=== PATIENT | male | born 1975 | race Caucasian/White ===

== ENCOUNTER 2017-06-28 14:48 | Inpatient (IN) | payer BC ==
[2017-06-28] MEDS ORDERED: Sodium Chloride 0.9% 10 ML Syringe FLUSH PRN (15:00)
[2017-06-28] MEDS ORDERED: Sodium Chloride 0.9% 1,000 ML IV ONE (15:09)
[2017-06-28] MEDS ORDERED: LORazepam 2 MG/ML MDV IVPUSH STA (15:15)
[2017-06-28] MEDS ORDERED: LORazepam 2 MG/ML MDV ONE ×2 (15:18→15:49)
--- NOTE | 2017-06-28 15:24 | CT ---
Head CT Technique: Multiple axial sections through the brain were obtained. Intravenous contrast was not utilized. Comparison: No previous intracranial imaging is available. Findings: Small low-density area is seen within the posterior left basal ganglia most likely due to slightly prominent perivascular space as an incidental note. Ventricles along with basal cisterns and sulci over the convexities are within normal limits. No abnormal parenchymal densities are otherwise seen. No evidence of intracranial hemorrhage. No midline shift or mass effect is seen. Bone window settings were obtained which shows the mastoid sinuses to appear clear. Paranasal sinuses are clear. No acute calvarial abnormality is seen. Impression: 1. Incidental finding. Nothing acute is identified on noncontrast head CT exam. Diagnostic code #2
--- NOTE | 2017-06-28 15:42 | EDM.PDOC ---
ED HPI GENERAL MEDICAL PROBLEM - General Chief Complaint: Neurological Problem Stated Complaint: [facility] Time Seen by Provider: 06/28/17 14:50 Source of Information: Reports: Patient History Limitations: Reports: Intoxication, Other (post ictal) - History of Present Illness INITIAL COMMENTS - FREE TEXT/NARRATIVE: 42-year-old male is brought in by [facility] for evaluation treatment of the seizure. Per EMS there call out at 14:11 for a 42-year-old male having a seizure. Upon arrival he was postictal and confused. Appeared to have bitten his tongue is there was bleeding from the mouth. Reportedly he told EMS that he drinks quite heavily. He is currently trying to stop drinking and has decreased his alcohol intake. The patient is postictal and is confused. He tells me he had a seizure and 9:00 this morning and has been working ever since. He does not recall the seizure. Currently complaining of pain to his tongue. Denies any loss of bowel or bladder. Denies any current headaches, neck pain, chest pain, shortness of breath, pain in the arms or legs, abdominal pain, nausea or vomiting. He did walk in on his own volition. Patient denies to me any drug use. He states that he drinks occasionally. He states he drinks 1 or 2 beers per night. Patient reports he did previously have one seizure before. He is not currently on any medications. States that he was worked up in [place] for seizure several years ago. He states they did not find the cause of the seizure. He does not see neurology. No treatments prior to arrival in the ER by EMS. Onset: Today Head Pain Score (Numeric/FACES): 5 Oral/Mouth Pain Score (Numeric/FACES): 3 - Related Data Allergies Allergy/AdvReac Type Severity Reaction Status Date / Time No Known Allergies Allergy Verified 06/28/17 18:31 Home Meds: Home Meds . [No Known Home Meds] 06/28/17 [History] Past Medical History - Past Health History Medical/Surgical History: Denies Medical/Surgical History Neurological History: Reports: Seizure Other Neuro History: patient states he had one seizure before several years ago. Social & Family History - Tobacco Use Smoking Status *Q: Current Every Day Smoker Years of Tobacco use: 15 Packs/Tins Daily: 1 - Alcohol Use Days Per Week of Alcohol Use: 7 Number of Drinks Per Day: 2 Total Drinks Per Week: 14 - Recreational Drug Use Recreational Drug Use: No ED ROS GENERAL - Review of Systems Review Of Systems: See Below HEENT: Reports: Other (tongue pain from biting tongue) Respiratory: Denies: Shortness of Breath Cardiovascular: Denies: Chest Pain GI/Abdominal: Denies: Abdominal Pain, Nausea, Stool Incontinence, Vomiting : Denies: Incontinence Musculoskeletal: Denies: Neck Pain Neurological: Reports: Seizure. Denies: Headache, Numbness, Tingling Psychiatric: Reports: Confusion - Physical Exam Exam: See Below Exam Limited By: No Limitations General Appearance: Anxious, Lethargic, Other (patient smells of alcohol) Eye Exam: Bilateral Eye: EOMI, PERRL Ears: Normal External Exam, Normal Canal, Hearing Grossly Normal, Normal TMs Nose: Normal Inspection Throat/Mouth: Normal Inspection, Normal Lips, Normal Voice, No Airway Compromise , Evidence of Tongue Biting Head Exam: Atraumatic, Normocephalic Neck: Normal Inspection, Supple, Non-Tender, Full Range of Motion Respiratory/Chest: No Respiratory Distress, Lungs Clear, Normal Breath Sounds Cardiovascular: Normal Peripheral Pulses, No Murmur, Tachycardia GI/Abdominal: Soft, Non-Tender Neuro Exam (Abbreviated): Alert, Confused, Memory Loss Recent Events Extremities: Normal Inspection Psychiatric: Normal Affect, Normal Mood Skin Exam: Warm, Dry, Normal Color Course - Vital Signs Last Recorded V/S: Last Vital Signs Temp 36.5 C 06/30/17 07:48 Pulse 84 06/30/17 07:48 Resp 16 06/30/17 07:48 BP 128/93 H 06/30/17 07:48 Pulse Ox 98 06/30/17 07:48 - Orders/Labs/Meds Labs: Laboratory Tests 06/28/17 06/28/17 06/28/17 Range/Units 15:30 15:30 15:30 WBC 12.72 H (4.23-9.07) K/mm3 RBC 4.56 L (4.63-6.08) M/mm3 Hgb 15.6 (13.7-17.5) gm/L Hct 44.8 (40.1-51.0) % MCV 98.2 H (79.0-92.2) fl MCH 34.2 H (25.7-32.2) pg MCHC 34.8 (32.2-35.5) g/dl RDW Std Deviation 42.8 (35.1-43.9) fL Plt Count 155 L (163-337) K/mm3 MPV 9.5 (9.4-12.3) fl Neutrophils % (Manual) 82 H (40-60) % Band Neutrophils % 0 (0-10) % Lymphocytes % (Manual) 10 L (20-40) % Atypical Lymphs % 0 % Monocytes % (Manual) 8 (2-10) % Eosinophils % (Manual) 0 L (0.8-7.0) % Basophils % (Manual) 0 L (0.2-1.2) Platelet Estimate Adequate Plt Morphology Comment Normal RBC Morph Comment Normal PT 10.2 (8.0-13.0) SECONDS INR 0.94 APTT 26 (22-36) SECONDS Sodium 131 L (136-145) mEq/L Potassium 4.0 (3.5-5.1) mEq/L Chloride 92 L (98-107) mEq/L Carbon Dioxide 16 L (21-32) mEq/L Anion Gap 27.0 H (5-15) BUN 5 L (7-18) mg/dL Creatinine 1.2 (0.7-1.3) mg/dL Est Cr Clr Drug Dosing 82.80 mL/min Estimated GFR (MDRD) > 60 (>60) mL/min BUN/Creatinine Ratio 4.2 L (14-18) Glucose 125 H (74-106) mg/dL Calcium 8.7 (8.5-10.1) mg/dL Phosphorus 2.6 (2.6-4.7) mg/dL Magnesium 2.2 (1.8-2.4) mg/dl Total Bilirubin 0.5 (0.2-1.0) mg/dL AST 87 H (15-37) U/L ALT 80 H (16-63) U/L Alkaline Phosphatase 74 (46-116) U/L Creatine Kinase 314 H (39-308) U/L Total Protein 8.3 H (6.4-8.2) g/dl Albumin 4.2 (3.4-5.0) g/dl Globulin 4.1 gm/dL Albumin/Globulin Ratio 1.0 (1-2) Urine Opiates Screen (NEGATIVE) Ur Buprenorphine Scrn (NEGATIVE) Ur Oxycodone Screen (NEGATIVE) Urine Methadone Screen (NEGATIVE) Ur Propoxyphene Screen (NEGATIVE) Ur Barbiturates Screen (NEGATIVE) Ur Tricyclics Screen (NEGATIVE) Ur Phencyclidine Scrn (NEGATIVE) Ur Amphetamine Screen (NEGATIVE) U Methamphetamines Scrn (NEGATIVE) U Benzodiazepines Scrn (NEGATIVE) U Cocaine Metab Screen (NEGATIVE) U Marijuana (THC) Screen (NEGATIVE) Ethyl Alcohol 0.04 (0.00) gm% 06/28/17 Range/Units 15:58 WBC (4.23-9.07) K/mm3 RBC (4.63-6.08) M/mm3 Hgb (13.7-17.5) gm/L Hct (40.1-51.0) % MCV (79.0-92.2) fl MCH (25.7-32.2) pg MCHC (32.2-35.5) g/dl RDW Std Deviation (35.1-43.9) fL Plt Count (163-337) K/mm3 MPV (9.4-12.3) fl Neutrophils % (Manual) (40-60) % Band Neutrophils % (0-10) % Lymphocytes % (Manual) (20-40) % Atypical Lymphs % % Monocytes % (Manual) (2-10) % Eosinophils % (Manual) (0.8-7.0) % Basophils % (Manual) (0.2-1.2) Platelet Estimate Plt Morphology Comment RBC Morph Comment PT (8.0-13.0) SECONDS INR APTT (22-36) SECONDS Sodium (136-145) mEq/L Potassium (3.5-5.1) mEq/L Chloride (98-107) mEq/L Carbon Dioxide (21-32) mEq/L Anion Gap (5-15) BUN (7-18) mg/dL Creatinine (0.7-1.3) mg/dL Est Cr Clr Drug Dosing mL/min Estimated GFR (MDRD) (>60) mL/min BUN/Creatinine Ratio (14-18) Glucose (74-106) mg/dL Calcium (8.5-10.1) mg/dL Phosphorus (2.6-4.7) mg/dL Magnesium (1.8-2.4) mg/dl Total Bilirubin (0.2-1.0) mg/dL AST (15-37) U/L ALT (16-63) U/L Alkaline Phosphatase (46-116) U/L Creatine Kinase (39-308) U/L Total Protein (6.4-8.2) g/dl Albumin (3.4-5.0) g/dl Globulin gm/dL Albumin/Globulin Ratio (1-2) Urine Opiates Screen Negative (NEGATIVE) Ur Buprenorphine Scrn Negative (NEGATIVE) Ur Oxycodone Screen Negative (NEGATIVE) Urine Methadone Screen Negative (NEGATIVE) Ur Propoxyphene Screen Negative (NEGATIVE) Ur Barbiturates Screen Negative (NEGATIVE) Ur Tricyclics Screen Negative (NEGATIVE) Ur Phencyclidine Scrn Negative (NEGATIVE) Ur Amphetamine Screen Negative (NEGATIVE) U Methamphetamines Scrn Negative (NEGATIVE) U Benzodiazepines Scrn Negative (NEGATIVE) U Cocaine Metab Screen Negative (NEGATIVE) U Marijuana (THC) Screen Negative (NEGATIVE) Ethyl Alcohol (0.00) gm% Meds: Medications Discontinued Medications Generic Name Dose Route Start Last Admin Trade Name Freq PRN Reason Stop Dose Admin Al Hydroxide/Mg Hydroxide 30 ml 06/28/17 20:56 06/29/17 03:33 Mag-Al Plus PO 06/28/17 20:57 Not Given ONETIME ONE Albuterol/Ipratropium 3 ml 06/28/17 19:25 Duoneb 3.0-0.5 Mg/3 Ml NEB Q4H PRN Shortness Of Breath/wheezing Bisacodyl 5 mg 06/28/17 19:25 Dulcolax PO DAILY PRN Constipation Clonidine HCl 0.1 mg 06/28/17 19:32 Catapres PO Q4H PRN Agitation Diazepam 5 mg 06/28/17 15:11 06/28/17 15:33 Valium IVPUSH 06/28/17 15:12 5 mg ONETIME ONE Administration Diphenhydramine HCl 25 mg 06/29/17 03:45 06/29/17 04:28 Benadryl IVPUSH 06/29/17 03:46 Not Given ONETIME ONE Docusate Sodium 100 mg 06/28/17 19:25 Colace PO BID PRN Constipation Famotidine 20 mg 06/28/17 17:11 06/28/17 17:16 Pepcid IVPUSH 06/28/17 17:12 20 mg ONETIME ONE Administration Famotidine 20 mg 06/28/17 21:00 06/30/17 08:06 Pepcid PO 20 mg BID ENOC Administration Folic Acid 1 mg 06/29/17 09:00 06/30/17 08:07 Folic Acid PO 1 mg DAILY ENOC Administration Hydralazine HCl 10 mg 06/28/17 19:32 Apresoline PO Q6H PRN Hypertension Sodium Chloride 1,000 mls @ 999 mls/hr 06/28/17 15:09 06/28/17 15:33 Normal Saline IV 06/28/17 16:09 999 mls/hr ONETIME ONE Administration Dextrose/Sodium Chloride 1,000 mls @ 100 mls/hr 06/29/17 11:45 06/29/17 21:54 Dextrose 5%-Normal Saline IV 100 mls/hr ASDIRECTED ENOC Administration Ibuprofen 600 mg 06/28/17 19:25 Motrin PO Q6H PRN Pain (moderate 4-6) Influenza Virus Vaccine 60 mcg 06/30/17 07:54 06/30/17 08:40 Flulaval Quad [id number] IM 06/30/17 07:55 60 mcg .ONCE ONE Administration Ketorolac Tromethamine 30 mg 06/28/17 17:11 06/28/17 17:17 Toradol IVPUSH 06/28/17 17:12 30 mg ONETIME ONE Administration Ketorolac Tromethamine 30 mg 06/28/17 19:25 Toradol IM Q6H PRN Pain (moderate 4-6) Lorazepam Confirm 06/28/17 15:18 06/28/17 15:39 Ativan Administered 06/28/17 15:19 Not Given Dose 2 mg .ROUTE .STK-MED ONE Lorazepam 2 mg 06/28/17 15:15 06/28/17 15:38 Ativan IVPUSH 06/28/17 15:16 2 mg ONETIME STA Administration Lorazepam Confirm 06/28/17 15:49 06/28/17 17:45 Ativan Administered 06/28/17 15:50 Not Given Dose 4 mg .ROUTE .STK-MED ONE Lorazepam 0 mg 06/28/17 19:32 Ativan IV Q1H PRN Withdrawal Symptoms Protocol Lorazepam 2 mg 06/28/17 19:32 Ativan IVPUSH Q4H PRN Seizures Lorazepam 0 mg 06/28/17 19:35 Ativan IVPUSH Q4H PRN withdrawl Protocol Lorazepam 1 - 3 mg 06/28/17 19:41 06/28/17 21:09 Ativan IVPUSH 1 mg Q4H PRN Administration withdrawl Protocol Metoprolol Tartrate 5 mg 06/28/17 19:32 Lopressor IVPUSH Q4H PRN Tachycardia Miscellaneous Information 1 ea 06/29/17 09:00 06/30/17 08:12 Remove Patch TRDERM 1 ea DAILY ENOC Administration Multivitamins 1 each 06/28/17 21:15 06/30/17 08:06 Thera PO 1 each DAILY ENOC Administration Naproxen 500 mg 06/28/17 23:00 06/30/17 08:07 Naprosyn PO 500 mg Q12HR ENOC Administration Nicotine 21 mg 06/28/17 19:30 06/30/17 08:08 Habitrol TRDERM 21 mg DAILY ENOC Administration Ondansetron HCl 4 mg 06/28/17 19:25 Zofran Odt PO Q6H PRN nausea, able to take PO Ondansetron HCl 4 mg 06/28/17 19:25 Zofran IV Q6H PRN Nausea/Vomiting Quetiapine Fumarate 50 mg 06/28/17 21:00 06/29/17 21:32 Seroquel PO 50 mg BEDTIME ENOC Administration Senna/Docusate Sodium 1 tab 06/28/17 19:25 Senna Plus PO BID PRN Constipation Sodium Chloride 10 ml 06/28/17 15:00 06/28/17 15:38 Saline Flush FLUSH 10 ml ASDIRECTED PRN Administration Keep Vein Open Thiamine HCl 100 mg 06/29/17 09:00 06/30/17 08:05 Vitamin B-1 PO 100 mg DAILY ENOC Administration Topiramate 25 mg 06/28/17 21:00 Topamax PO BID ENOC Topiramate 25 mg 06/29/17 09:00 06/30/17 08:06 Topamax PO 25 mg BID ENOC Administration Topiramate 50 mg 06/28/17 21:00 06/28/17 20:51 Topamax PO 06/28/17 21:01 50 mg ONETIME ONE Administration - Radiology Interpretation Free Text/Narrative:: head CT without contrast impression per Dr. Chicas: 1. Incidental finding. Nothing acute is identified on noncontrast head Ct exam. chest xray impression per Dr. Chicas: 1. Slight right basilar atelectasis. 2. Nothing acute is otherwise seen on portable chest x-ray. - Re-Assessments/Exams Free Text/Narrative Re-Assessment/Exam: 06/28/17 17:22 Patient had another seizure about 10 minutes after arrival to the ER. He subsequently bit his tongue again. Seizure lasted approximately 1-2 minutes. Vomited at the conclusion of the seizure. Smelled strongly of alcohol. He was given 2 mg IV Ativan. He is now been seizure-free during the remainder of his ER stay. Given toradol for the tongue pain and pepcid for heartburn. Discussed disposition with the patient. He continues to admit to only drinking 2 or 3 beers a night. I was able to discuss this with the patient's significant other his alcohol consumption. She is unsure how much exactly he drinks. He will go to the garage and drink and smoke extensively. She knows that he drinks much more than he is reporting to us tonight. I discussed the case with Dr. Rosenberg, hospitalist on-call. He will admit the patient to the ICU. Departure - Departure Time of Disposition: 17:30 Disposition: Admitted As Inpatient 66 Condition: Serious Clinical Impression: Alcohol withdrawal seizure, Alcohol abuse - Discharge Information
--- NOTE | 2017-06-28 16:43 | CR ---
Chest: Portable view of the chest was obtained. Comparison: No previous study. Heart size and mediastinum are within normal limits for portable technique. Minimal right basilar atelectasis is seen. Lungs otherwise are clear. Bony structures are grossly intact. Impression: 1. Slight right basilar atelectasis. 2. Nothing acute is otherwise seen on portable chest x-ray. Diagnostic code #2
[2017-06-28] MEDS ORDERED: Ketorolac 30 MG/ML SDV IVPUSH ONE (17:11)
[2017-06-28] MEDS ORDERED: Famotidine 20 MG/2 ML SDV IVPUSH ONE (17:11)
[2017-06-28] MEDS ORDERED: Ondansetron 4 MG/2 ML SDV IV PRN (19:25)
[2017-06-28] MEDS ORDERED: Ibuprofen 600 MG Tab PO PRN (19:25)
[2017-06-28] MEDS ORDERED: Albuterol/Ipratropium 3.0-0.5 MG/3 ML Neb Soln NEB PRN (19:25)
[2017-06-28] MEDS ORDERED: Bisacodyl 5 MG Tab PO PRN (19:25)
[2017-06-28] MEDS ORDERED: Ondansetron 4 MG Tab.DIS PO PRN (19:25)
[2017-06-28] MEDS ORDERED: Ketorolac 30 MG/ML SDV IM PRN (19:25)
[2017-06-28] MEDS ORDERED: Docusate Sodium 100 MG Cap PO PRN (19:25)
[2017-06-28] MEDS ORDERED: hydrALAZINE 10 MG Tab PO PRN (19:32)
[2017-06-28] MEDS ORDERED: Metoprolol Tartrate 5 MG/5 ML SDV IVPUSH PRN (19:32)
[2017-06-28] MEDS ORDERED: LORazepam 2 MG/ML MDV IVPUSH PRN ×3 (19:32→19:41)
[2017-06-28] MEDS ORDERED: cloNIDine 0.1 MG Tab PO PRN (19:32)
[2017-06-28] MEDS ORDERED: LORazepam 2 MG/ML MDV IV PRN (19:32)
--- NOTE | 2017-06-28 20:02 | PCM.HP ---
H&P History of Present Illness - General Date of Service: 06/28/17 Source of Information: Patient, Old Records, Provider, RN History Limitations: Reports: No Limitations - History of Present Illness Initial Comments - Free Text/Narative: Devin Graham is a 42 yo male who was brought in to our ED today by [place] [facility] after having a seizure. EMS reports he was postictal and confused upon their arrival. He was bleeding from his mouth and appears he had been in his tongue. The patient reportedly told EMS that he drinks heavily and is trying to stop. He has reportedly decreased his ETOH intake. Upon arrival the patient does not recall the seizure. His major complaint is tongue pain. Denies any loss of bowel or bladder control. Denies any current headaches, neck pain, chest pain, shortness of breath, pain in her legs, abdominal pain, nausea, or vomiting. He denies any drug use. States he drinks occasionally one to 2 beers per night. He reports having a previous seizure although is not on any current seizure medications. He was worked up in [place] versus a seizure several years ago. He reports that the cause of the seizure was never determined and he did not see neurology. In the ER temp was 36.7C, pulse 120, respirations 18, BP 145/95, pulse ox 96%. He is given a saline bolus. While the ED he had a second seizure. Lorazepam and 5 mg Valium were given. A 1 view CXR was obtained. This was interpreted by Dr. Chicas as 1. Slight right basilar atelectasis. 2. Nothing acute is otherwise seen on portable chest x-ray. Head CT without contrast was also obtained. This is interpreted by Dr. Chicas as 1. Incidental finding. Nothing acute is identified on noncontrast head CT exam. Labs are obtained: W CBC elevated at 12.72. Hemoglobin 15.6. Hematocrit 44.8. Platelets are slightly low at 155,000. Neutrophils 82%. PT is 10.2. INR 0.94. APTT 26. Sodium was low at 131. Chloride low at 92. Carbon dioxide low at 16. Anion gap is very high at 27. BUN is low at 5. Creatinine 1.2. GFR greater than 60. Glucose 125. Calcium 8.7. Phosphorus 2.6. Magnesium 2.2. Liver enzymes are slightly elevated with AST at 87, ALT at 80, alkaline phosphatase at 74. Creatinine kinase is 314. Total protein 8.3. Albumin 4.2. Drug screen is negative. As alcohol is 0.04. He denies any past medical conditions. He is a current daily smoker of 15 years. He is a full code. He does not have a PCP. Head Pain Score (Numeric/FACES): 5 Oral/Mouth Pain Score (Numeric/FACES): 3 - Related Data Allergies/Adverse Reactions: Allergies Allergy/AdvReac Type Severity Reaction Status Date / Time No Known Allergies Allergy Verified 06/28/17 18:31 Home Medications: Home Meds . [No Known Home Meds] 06/28/17 [History] Past Medical History - Past Health History Medical/Surgical History: Denies Medical/Surgical History Neurological History: Reports: Seizure Other Neuro History: patient states he had one seizure before several years ago. Social & Family History - Tobacco Use Smoking Status *Q: Current Every Day Smoker Years of Tobacco use: 30 Packs/Tins Daily: 0.5 - Caffeine Use Caffeine Use: Reports: Coffee - Alcohol Use Days Per Week of Alcohol Use: 7 Number of Drinks Per Day: 3 Total Drinks Per Week: 21 Date of Last Drink: 06/27/17 Time of Last Drink: 23:00 - Recreational Drug Use Recreational Drug Use: No H&P Review of Systems - Review of Systems: Review Of Systems: See Below General: Reports: No Symptoms. Denies: Fever, Chills, Malaise, Weakness, Fatigue HEENT: Reports: Other (Reports current "heartburn" and tongue pain). Denies: Dysphasia, Ear Pain, Eye Pain, Glasses, Headaches Pulmonary: Reports: No Symptoms. Denies: Shortness of Breath, Wheezing, Pleuritic Chest Pain, Cough, Sputum Cardiovascular: Reports: No Symptoms. Denies: Chest Pain, Palpitations, Dyspnea on Exertion, Edema, Lightheadedness, Claudication Gastrointestinal: Reports: No Symptoms. Denies: Abdominal Pain, Constipation, Diarrhea, Nausea, Stool Incontinence, Vomiting Genitourinary: Reports: No Symptoms. Denies: Dysuria, Frequency, Burning, Pain , Urgency Musculoskeletal: Reports: No Symptoms. Denies: Neck Pain, Shoulder Pain, Arm Pain, Back Pain, Hand Pain, Leg Pain, Foot Pain, Joint Pain, Joint Swelling, Muscle Pain, Muscle Stiffness Skin: Reports: No Symptoms Psychiatric: Reports: No Symptoms. Denies: Confusion, Depression, Mood Lability , Anxiety Neurological: Reports: No Symptoms. Denies: Confusion, Dizziness, Headache, Numbness, Paresthesia, Pre-Existing Deficit, Tingling, Trouble Speaking, Difficulty Walking, Weakness, Change in Speech, Gait Disturbance Hematologic/Lymphatic: Reports: No Symptoms Immunologic: Reports: No Symptoms Exam - Exam Exam: See Below - Vital Signs Vital Signs: Last Vital Signs Temp 99.6 F 06/28/17 17:45 Pulse 106 H 06/28/17 17:45 Resp 18 06/28/17 18:01 BP 118/88 06/28/17 18:00 Pulse Ox 94 L 06/28/17 17:45 Weight: 185 lb - Exam Quality Assessment: DVT Prophylaxis General: Alert, Oriented, Cooperative HEENT: Conjunctiva Clear, EACs Clear, EOMI, Hearing Intact, Mucosa Moist & [place] , Nares Patent, Normal Nasal Septum, Posterior Pharynx Clear, PERRLA Neck: Supple, Trachea Midline, Full Range of Motion. No: +2 Carotid Pulse wo Bruit, JVD, Thyromegaly Lungs: Clear to Auscultation, Normal Respiratory Effort Cardiovascular: Regular Rate, Regular Rhythm GI/Abdominal Exam: Normal Bowel Sounds, Soft, Non-Tender, No Organomegaly, No Distention, No Abnormal Bruit, No Mass, Pelvis Stable (Male) Exam: Deferred Rectal (Males) Exam: Deferred Back Exam: Normal Inspection, Full Range of Motion Extremities: Normal Inspection, Normal Range of Motion, Non-Tender, No Pedal Edema, Normal Capillary Refill Peripheral Pulses: 2+: Posterior Tibial (L), Posterior Tibial (R), Dorsalis Pedis (L), Dorsalis Pedis (R), 3+: Radial (L), Radial (R) Skin: Warm, Dry, Intact Neurological: Cranial Nerves Intact Neuro Extensive - Mental Status: Alert, Oriented x3, Normal Mood/Affect, Normal Cognition, Memory Intact Neuro Extensive - Motor, Sensory, Reflexes: CN II-XII Intact, Normal Gait Psychiatric: Alert, Normal Affect, Normal Mood - Patient Data Result Diagrams: 06/28/17 15:30 06/28/17 15:30 *Q Meaningful Use (ADM) - VTE *Q VTE Criteria *Q: - Stroke *Q Stroke Criteria *Q: - AMI *Q AMI Criteria *Q: - Problem List (1) Seizure SNOMED Code(s): 72041304 ICD Code: R56.9 - UNSPECIFIED CONVULSIONS Status: Acute Priority: High Current Visit: Yes (2) Alcohol abuse SNOMED Code(s): 43064520 ICD Code: F10.10 - ALCOHOL ABUSE, UNCOMPLICATED Status: Chronic Priority : High Current Visit: Yes (3) Tobacco use disorder SNOMED Code(s): 284974710 ICD Code: F17.200 - NICOTINE DEPENDENCE, UNSPECIFIED, UNCOMPLICATED Status : Chronic Priority: Medium Current Visit: Yes Problem List Initiated/Reviewed/Updated: Yes Orders Last 24hrs: Active Orders 24 hr Category Date Time Status Ambulate [RC] PER UNIT ROUTINE Care 06/28/17 19:26 Active Antiembolic Devices [RC] PER UNIT ROUTINE Care 06/28/17 19:31 Active CIWAA Assessment [RC] Q1HR Care 06/28/17 19:32 Active Cardiac Monitoring [RC] CONTINUOUS Care 06/28/17 19:26 Active EEG Electrocerebral Silence [RC] ROUTINE Care 06/29/17 06:00 Active Height and Weight [RC] DAILY Care 06/28/17 19:25 Active Intake and Output [RC] QSHIFT Care 06/28/17 19:26 Active Oxygen Therapy [RC] PRN Care 06/28/17 19:25 Active Pulse Oximetry [RC] PRN Care 06/28/17 19:26 Active RT Aerosol Therapy [RC] ASDIRECTED Care 06/28/17 19:31 Active Up With Assistance [RC] ASDIRECTED Care 06/28/17 19:25 Active VTE/DVT Education [RC] PER UNIT ROUTINE Care 06/28/17 19:25 Active Vital Signs [RC] Q4H Care 06/28/17 19:25 Active Consult for Substance Abuse [CONS] Routine Cons 06/28/17 19:36 Active Consult to Case Management [CONS] Routine Cons 06/28/17 19:25 Active Consult to Twisting Press Operator [CONS] Routine Cons 06/28/17 19:25 Active OT Evaluation and Treatment [CONS] Routine Cons 06/28/17 19:25 Active PT Evaluation and Treatment [CONS] Routine Cons 06/28/17 19:25 Active Clear Liquid Diet [DIET] Diet 06/28/17 Dinner Active BASIC METABOLIC PANEL,BMP [CHEM] AM Lab 06/29/17 05:11 Ordered BASIC METABOLIC PANEL,BMP [CHEM] AM Lab 06/30/17 05:11 Ordered BASIC METABOLIC PANEL,BMP [CHEM] AM Lab 07/01/17 05:11 Ordered BASIC METABOLIC PANEL,BMP [CHEM] AM Lab 07/02/17 05:11 Ordered CBC WITH AUTO DIFF [HEME] AM Lab 06/29/17 05:11 Ordered CBC WITH AUTO DIFF [HEME] AM Lab 06/30/17 05:11 Ordered CBC WITH AUTO DIFF [HEME] AM Lab 07/01/17 05:11 Ordered CBC WITH AUTO DIFF [HEME] AM Lab 07/02/17 05:11 Ordered MAGNESIUM [CHEM] AM Lab 06/29/17 05:11 Ordered MAGNESIUM [CHEM] AM Lab 06/30/17 05:11 Ordered MAGNESIUM [CHEM] AM Lab 07/01/17 05:11 Ordered MAGNESIUM [CHEM] AM Lab 07/02/17 05:11 Ordered Albuterol/Ipratropium [DuoNeb 3.0-0.5 MG/3 ML] Med 06/28/17 19:25 Active 3 ml NEB Q4H PRN Bisacodyl [Dulcolax] Med 06/28/17 19:25 Active 5 mg PO DAILY PRN Docusate Sodium [Colace] Med 06/28/17 19:25 Active 100 mg PO BID PRN Docusate Sodium/Sennosides [Senna Plus] Med 06/28/17 19:25 Active 1 tab PO BID PRN Famotidine [Pepcid] Med 06/28/17 21:00 Ordered 20 mg PO BID Folic Acid Med 06/29/17 09:00 Ordered 1 mg PO DAILY LORazepam [Ativan] Med 06/28/17 19:32 Ordered 2 mg IVPUSH Q4H PRN LORazepam [Ativan] Med 06/28/17 19:41 Ordered See Protocol IVPUSH Q4H PRN Metoprolol Tartrate [Lopressor] Med 06/28/17 19:32 Ordered 5 mg IVPUSH Q4H PRN Naproxen [Naprosyn] Med 06/28/17 21:00 Ordered 500 mg PO Q12HR Nicotine [Habitrol] Med 06/28/17 19:30 Ordered 21 mg TRDERM DAILY Ondansetron [Zofran ODT] Med 11/15/17 19:25 Active 4 mg PO Q6H PRN Ondansetron [Zofran] Med 06/28/17 19:25 Ordered 4 mg IV Q6H PRN QUEtiapine [SEROquel] Med 06/28/17 21:00 Ordered 50 mg PO BEDTIME Thiamine [Vitamin B-1] Med 06/29/17 09:00 Ordered 100 mg PO DAILY Topiramate [Topamax] Med 06/29/17 09:00 Pending 25 mg PO BID Topiramate [Topamax] Med 06/28/17 21:00 Once 50 mg PO ONETIME ONE cloNIDine [Catapres] Med 06/28/17 19:32 Ordered 0.1 mg PO Q4H PRN hydrALAZINE [Apresoline] Med 06/28/17 19:32 Ordered 10 mg PO Q6H PRN Precautions [COMM] Routine Oth 06/28/17 19:32 Ordered Sequential Compression Device [OM.PC] Per Unit Routine Oth 06/28/17 19:26 Ordered Resuscitation Status Routine Resus Stat 06/28/17 19:25 Ordered Medication Orders Albuterol/Ipratropium (Duoneb 3.0-0.5 Mg/3 Ml) 3 ml NEB Q4H PRN PRN Reason: Shortness Of Breath/wheezing Bisacodyl (Dulcolax) 5 mg PO DAILY PRN PRN Reason: Constipation Clonidine HCl (Catapres) 0.1 mg PO Q4H PRN PRN Reason: Agitation Docusate Sodium (Colace) 100 mg PO BID PRN PRN Reason: Constipation Famotidine (Pepcid) 20 mg PO BID ENOC Folic Acid (Folic Acid) 1 mg PO DAILY ENOC Hydralazine HCl (Apresoline) 10 mg PO Q6H PRN PRN Reason: Hypertension Lorazepam (Ativan) 2 mg IVPUSH Q4H PRN PRN Reason: Seizures Lorazepam (Ativan) 0 mg IVPUSH Q4H PRN; Protocol PRN Reason: withdrawl Metoprolol Tartrate (Lopressor) 5 mg IVPUSH Q4H PRN PRN Reason: Tachycardia Naproxen (Naprosyn) 500 mg PO Q12HR ENOC Nicotine (Habitrol) 21 mg TRDERM DAILY [facility] Ondansetron HCl (Zofran Odt) 4 mg PO Q6H PRN PRN Reason: nausea, able to take PO Ondansetron HCl (Zofran) 4 mg IV Q6H PRN PRN Reason: Nausea/Vomiting Quetiapine Fumarate (Seroquel) 50 mg PO BEDTIME ENOC Senna/Docusate Sodium (Senna Plus) 1 tab PO BID PRN PRN Reason: Constipation Sodium Chloride (Saline Flush) 10 ml FLUSH ASDIRECTED PRN PRN Reason: Keep Vein Open Last Admin: 06/28/17 15:38 Dose: 10 ml Thiamine HCl (Vitamin B-1) 100 mg PO DAILY ENOC Topiramate (Topamax) 25 mg PO BID ENOC Topiramate (Topamax) 50 mg PO ONETIME ONE Stop: 06/28/17 21:01 Assessment/Plan Comment:: Assessment/Plan: Acute: Seizures -Reportedly found by customer in postictal state today. Transported to ED via ambulance. -Second seizure noted in ED -Given Ativan and Valium -A&Ox3 now -States he has had seizure in the past while living in [place] and was worked up for this with no explanation of cause. Did not see neurology. -Head CT in ED on 06/28/17 -Small low density areas seen within the posterior left basal ganglia most likely due to slightly prominent perivascular space as an incidental note. -Nothing acute is identified on noncontrast head CT exam -Neuro exam unremarkable -EEG ordered for morning of 06/29/17 -Patient does not recall ever having EEG preformed -Ativan ordered for seizure -? seizure cause due to alcohol withdrawl as below ETOH Withdrawal Symptoms - CIWA protocol, every 1 hr - Librium/Clonidine/Topamax/Seroquel - Hydralzine and IVP BB for HR/BP control - Ativan for Abortive Seizure and Withdrawal Symptoms - SA consult Alcohol Abuse - Chronic - He states he drinks "2-3 beers daily and sometimes not at all." Denies hard alcohol use. Denies withdrawl symptoms on days he doesn't drink - CIWA Protocol as above - SA consult Chronic: Tobacco Use Disorder - nicotine patch ordered Plan: Admit to ICU MVI, Folic, Acid and Thiamine CIWA protocol Ativan for Abortive Seizure and Withdrawal Symptoms PRN meds for Withdrawal Symptoms Aspiration/Seizure Precautions SW/CM d/c planning PT/OT SA/ consult DVT/PE prophylaxis: Ambulation and TONY Sang GI prophylaxis - Pepcid BID He does not have a PCP provider - should establish Code Status: Full code This case was discussed with Dr. Lawrence, Hospitalist
[2017-06-28] MEDS: QUEtiapine 25 MG Tab PO SCH (20:50)
[2017-06-28] MEDS: Famotidine 20 MG Tab PO SCH (20:50)
[2017-06-28] MEDS ORDERED: Aluminum Hydroxide/Magnesium Hydroxide/Simethicone Susp 30 ML Cup PO ONE (20:56)
[2017-06-28] MEDS ORDERED: Topiramate 25 MG Tab PO ONE (21:00)
[2017-06-28] MEDS ORDERED: Topiramate 25 MG Tab PO SCH (21:00)
[2017-06-28] MEDS: Nicotine 21 MG/24 Hr Patch TRDERM SCH (21:32)
[2017-06-28] MEDS: Multivitamins,Therapeutic Tab PO SCH (21:33)
[2017-06-29] MEDS: Naproxen 500 MG Tab PO SCH ×3 (03:33→21:32)
[2017-06-29] MEDS ORDERED: diphenhydrAMINE 50 MG/ML SDV IVPUSH ONE (03:45)
--- NOTE | 2017-06-29 07:29 | PCM.PN ---
- General Info Date of Service: 06/29/17 Admission Dx/Problem (Free Text): Seizure and ETOH Withdrawal Subjective Update: Follow Up Functional Status: Reports: Pain Controlled, Tolerating Diet, Urinating. Denies : New Symptoms - Review of Systems General: Denies: Fever, Weakness, Fatigue, Malaise, Chills HEENT: Reports: No Symptoms, Other (dysphagia due to swollen and injured tongue) Pulmonary: Denies: Shortness of Breath Cardiovascular: Denies: Chest Pain Gastrointestinal: Denies: Nausea, Vomiting Genitourinary: Reports: No Symptoms Musculoskeletal: Reports: No Symptoms Skin: Denies: Cyanosis, Pallor, Diaphoresis, Bruising, Pruritis Neurological: Denies: Confusion, Pre-Existing Deficit, Seizure, Weakness, Gait Disturbance Psychiatric: Denies: Depression, Anxiety, Agitation, Hallucinations Systems Review Comment:: Patient had absence seizure last night but has not had any since then. He slept pretty good. He has no acute issues or complaints. His CIWA score is low. - Patient Data Vitals - Most Recent: Last Vital Signs Temp 36.8 C 06/29/17 00:00 Pulse 85 06/29/17 04:01 Resp 15 06/29/17 04:01 BP 100/75 06/29/17 04:00 Pulse Ox 95 06/29/17 06:00 Weight - Most Recent: 83.915 kg I&O - Last 24 Hours: Intake & Output 06/28/17 06/29/17 06/29/17 22:59 06:59 14:59 Intake Total 150 Output Total 1050 Balance -900 Lab Results Last 24 Hours: Laboratory Results - last 24 hr 06/29/17 Range/Units 05:39 WBC 5.48 (4.23-9.07) K/mm3 RBC 4.27 L (4.63-6.08) M/mm3 Hgb 14.6 (13.7-17.5) gm/L Hct 41.8 (40.1-51.0) % MCV 97.9 H (79.0-92.2) fl MCH 34.2 H (25.7-32.2) pg MCHC 34.9 (32.2-35.5) g/dl RDW Std Deviation 42.9 (35.1-43.9) fL Plt Count 155 L (163-337) K/mm3 MPV 9.7 (9.4-12.3) fl Neut % (Auto) 61.8 (34.0-67.9) % Lymph % (Auto) 23.0 (21.8-53.1) % Irion % (Auto) 12.8 H (5.3-12.2) % Eos % (Auto) 1.8 (0.8-7.0) Baso % (Auto) 0.4 (0.1-1.2) % Neut # (Auto) 3.39 (1.78-5.38) K/mm3 Lymph # (Auto) 1.26 L (1.32-3.57) K/mm3 [place] # (Auto) 0.70 (0.30-0.82) K/mm3 Eos # (Auto) 0.10 (0.04-0.54) K/mm3 Baso # (Auto) 0.02 (0.01-0.08) K/mm3 Med Orders - Current: Current Medications Albuterol/Ipratropium (Duoneb 3.0-0.5 Mg/3 Ml) 3 ml NEB Q4H PRN PRN Reason: Shortness Of Breath/wheezing Bisacodyl (Dulcolax) 5 mg PO DAILY PRN PRN Reason: Constipation Clonidine HCl (Catapres) 0.1 mg PO Q4H PRN PRN Reason: Agitation Docusate Sodium (Colace) 100 mg PO BID PRN PRN Reason: Constipation Famotidine (Pepcid) 20 mg PO BID [facility] Last Admin: 06/28/17 20:50 Dose: 20 mg Folic Acid (Folic Acid) 1 mg PO DAILY [facility] Hydralazine HCl (Apresoline) 10 mg PO Q6H PRN PRN Reason: Hypertension Lorazepam (Ativan) 2 mg IVPUSH Q4H PRN PRN Reason: Seizures Lorazepam (Ativan) 1 - 3 mg IVPUSH Q4H PRN; Protocol PRN Reason: withdrawl Last Admin: 06/28/17 21:09 Dose: 1 mg Metoprolol Tartrate (Lopressor) 5 mg IVPUSH Q4H PRN PRN Reason: Tachycardia Miscellaneous Information (Remove Patch) 1 ea TRDERM DAILY [facility] Multivitamins (Thera) 1 each PO DAILY [facility] Last Admin: 06/28/17 21:33 Dose: Not Given Naproxen (Naprosyn) 500 mg PO Q12HR [facility] Last Admin: 06/29/17 03:33 Dose: Not Given Nicotine (Habitrol) 21 mg TRDERM DAILY [facility] Last Admin: 06/28/17 21:32 Dose: 21 mg Ondansetron HCl (Zofran Odt) 4 mg PO Q6H PRN PRN Reason: nausea, able to take PO Ondansetron HCl (Zofran) 4 mg IV Q6H PRN PRN Reason: Nausea/Vomiting Quetiapine Fumarate (Seroquel) 50 mg PO BEDTIME [facility] Last Admin: 06/28/17 20:50 Dose: 50 mg Senna/Docusate Sodium (Senna Plus) 1 tab PO BID PRN PRN Reason: Constipation Sodium Chloride (Saline Flush) 10 ml FLUSH ASDIRECTED PRN PRN Reason: Keep Vein Open Last Admin: 06/28/17 15:38 Dose: 10 ml Thiamine HCl (Vitamin B-1) 100 mg PO DAILY [facility] Topiramate (Topamax) 25 mg PO BID [facility] Discontinued Medications Al Hydroxide/Mg Hydroxide (Mag-Al Plus) 30 ml PO ONETIME ONE Stop: 06/28/17 20:57 Last Admin: 06/29/17 03:33 Dose: Not Given Diazepam (Valium) 5 mg IVPUSH ONETIME ONE Stop: 06/28/17 15:12 Last Admin: 06/28/17 15:33 Dose: 5 mg Diphenhydramine HCl (Benadryl) 25 mg IVPUSH ONETIME ONE Stop: 06/29/17 03:46 Last Admin: 06/29/17 04:28 Dose: Not Given Famotidine (Pepcid) 20 mg IVPUSH ONETIME ONE Stop: 06/28/17 17:12 Last Admin: 06/28/17 17:16 Dose: 20 mg Sodium Chloride (Normal Saline) 1,000 mls @ 999 mls/hr IV ONETIME ONE Stop: 06/28/17 16:09 Last Admin: 06/28/17 15:33 Dose: 999 mls/hr Ibuprofen (Motrin) 600 mg PO Q6H PRN PRN Reason: Pain (moderate 4-6) Ketorolac Tromethamine (Toradol) 30 mg IVPUSH ONETIME ONE Stop: 06/28/17 17:12 Last Admin: 06/28/17 17:17 Dose: 30 mg Ketorolac Tromethamine (Toradol) 30 mg IM Q6H PRN PRN Reason: Pain (moderate 4-6) Lorazepam (Ativan) Confirm Administered Dose 2 mg .ROUTE .STK-MED ONE Stop: 06/28/17 15:19 Last Admin: 06/28/17 15:39 Dose: Not Given Lorazepam (Ativan) 2 mg IVPUSH ONETIME STA Stop: 06/28/17 15:16 Last Admin: 06/28/17 15:38 Dose: 2 mg Lorazepam (Ativan) Confirm Administered Dose 4 mg .ROUTE .STK-MED ONE Stop: 06/28/17 15:50 Last Admin: 06/28/17 17:45 Dose: Not Given Lorazepam (Ativan) 0 mg IV Q1H PRN; Protocol PRN Reason: Withdrawal Symptoms Lorazepam (Ativan) 0 mg IVPUSH Q4H PRN; Protocol PRN Reason: withdrawl Topiramate (Topamax) 25 mg PO BID ENOC Topiramate (Topamax) 50 mg PO ONETIME ONE Stop: 06/28/17 21:01 Last Admin: 06/28/17 20:51 Dose: 50 mg - Exam General: Alert, Oriented, Cooperative, No Acute Distress, Mild Distress HEENT: Pupils Equal, Pupils Reactive, EOMI, Mucous Membr. Moist/[place], Other ( tongue is swollen with laceration) Neck: Supple, Trachea Midline Lungs: Clear to Auscultation, Normal Respiratory Effort Cardiovascular: Regular Rate, Regular Rhythm GI/Abdominal Exam: Normal Bowel Sounds, Soft, Non-Tender, No Organomegaly, No Distention, No Abnormal Bruit, No Mass (Male) Exam: Deferred, Other Back Exam: Normal Inspection, Full Range of Motion Extremities: Normal Inspection, Normal Range of Motion, Non-Tender, No Pedal Edema, Normal Capillary Refill Peripheral Pulses: 2+: Dorsalis Pedis (L), Dorsalis Pedis (R) Skin: Warm, Dry, Intact Neurological: No New Focal Deficit Psy/Mental Status: Alert, Normal Affect, Normal Mood - Problem List Review Problem List Initiated/Reviewed/Updated: Yes - Plan Plan:: Assessment/Plan: Acute: Seizures - Reportedly found by customer in post-ictal state today. Transported to ED via ambulance. - Second seizure noted in ED; Had absence seizure in last night - Given Ativan and Valium - States he has had seizure in the past while living in [place] and was worked up for this with no explanation of cause. Did not see neurology. - Head CT in ED on 06/28/17 - Small low density areas seen within the posterior left basal ganglia most likely due to slightly prominent perivascular space as an incidental note. - Nothing acute is identified on non-contrast head CT exam - Neuro exam unremarkable - EEG this am report reads: EEG is within normal limits and is characterized by low amplitude recording with a significant amount of sweat and muscle artifact. Low amplitude tracings are noted more commonly in patients were anxious and sometimes in the elderly. - Patient does not recall ever having EEG preformed - Ativan ordered for seizure - Seizure cause due to alcohol withdrawal as below - Refer to neurology after discharge - Will not start him on anti-seizure medications ETOH Withdrawal Symptoms - CIWA protocol, CIWA score is low - Librium/Clonidine/Topamax/Seroquel - Hydralazine and IVP BB for HR/BP control - Ativan for Abortive Seizure and Withdrawal Symptoms - Awaiting SA consult Alcohol Abuse - Acute on Chronic - He states he drinks "2-3 beers daily and sometimes not at all." Denies hard alcohol use. Denies withdrawal symptoms on days he doesn't drink - CIWA Protocol as above - Awaiting SA consult Chronic: Tobacco Use Disorder - nicotine patch ordered Plan: He is clinically stable Continue current treatment: MVI, Folic, Acid and Thiamine/CIWA protocol Ativan for Abortive Seizure and Withdrawal Symptoms PRN meds for Withdrawal Symptoms Aspiration/Seizure Precautions SW/CM d/c planning DVT/PE prophylaxis: Ambulation and TONY Hose GI prophylaxis - Pepcid BID He does not have a PCP provider - should establish Code Status: Full code Possible d/c in AM
[2017-06-29] MEDS: Nicotine 21 MG/24 Hr Patch TRDERM SCH (08:24)
[2017-06-29] MEDS: Topiramate 25 MG Tab PO SCH ×2 (08:25→21:33)
[2017-06-29] MEDS: Multivitamins,Therapeutic Tab PO SCH (08:25)
[2017-06-29] MEDS: Thiamine 100 MG Tab PO SCH (08:25)
[2017-06-29] MEDS: Famotidine 20 MG Tab PO SCH ×2 (08:25→21:32)
[2017-06-29] MEDS: Folic Acid 1 MG Tab PO SCH (08:25)
[2017-06-29] MEDS: Dextrose 5%-0.9% NaCl 1,000 ML IV SCH ×2 (11:59→21:54)
[2017-06-29] MEDS: QUEtiapine 25 MG Tab PO SCH (21:32)
--- NOTE | 2017-06-29 23:27 | CONS ---
CONSULTING PHYSICIAN: Vaughn De La Vega MD DATE OF CONSULTATION: 06/29/2017 60-minute inpatient clinical event. IDENTIFICATION: The patient is a 42-year-old male who was admitted to the inpatient MICU at [facility] on 06/28/2017. He is seen for psychiatric evaluation. 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 The patient states, "this isn't my first seizure, last one I had was back in 2011, and I will say at that time, I was drinking pretty heavy and I think that is why I had the seizures, but now I really cut back and I don't know what happened." The patient states that he used to drink quite heavily. He was using about a "6 pack and a 5th of liquor" a day back in 2011 when he had his first seizure episode. He states that he has greatly reduced his alcohol intake and is reporting at most "1-2 beers a day, but usually just 1- 2 beers on the weekend" at this point in time. He states his mood is generally good. Denies any anxiety and has good sleep and good energy levels. He denies any suicidal or homicidal. He denies any psychotic, delusional, or paranoid symptoms. He denies any illicit substances complicating his clinical picture. He is just not certain why he had this most recent seizure. MEDICATIONS: At the time of admission, none. Since being brought to the unit, primary inpatient medical team started him on Topamax 25 mg b.i.d. and Seroquel p.r.n. ALLERGIES: No known drug allergies. PAST MEDICAL HISTORY: Significant for a wounded tongue. Evidently, he bit his tongue while he had a grand mal seizure. REVIEW OF SYSTEMS: Aside from neuro, all other major organ systems are negative at this point in time for acute difficulties or complications. FAMILY PSYCHIATRIC AND CD HISTORY: The patient reports senility in his maternal grandmother. PAST PSYCHIATRIC AND CD HISTORY: The patient denies any previous psychiatric hospitalizations or chemical dependency treatments. Again, he states he is drinking about "1-2 beers a weekend." He states when he used to heavily about 5 years ago, he was drinking up to a 6-pack and a 5th of liquor a day. He denies any previous suicide attempts, self-injurious behaviors, or eating disorder history. Denies any abuse issues while being raised. He has never been on any psychiatric medication history. He has one DWI back in 2011. He has gone to AA in the past, but he is not feeling he needs any type of therapeutic intervention now for alcohol use. SOCIAL HISTORY: The patient was born and raised in [place], [place]. He is the second of 2 siblings. He had 1 older sister. The patient's parents were throughout his childhood and adolescence. Father worked at [employer]. Mother was a bilingual middle school teacher. The patient's highest level of education is 4 years of college. 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 He was x1 for 11 years, but for the past 10 years. He has no biological children. He lives in [place] by himself, but he has been in a current relationship for about the past 1-1/2 years. His girlfriend works as a [employer] manager. Denies any prior service or current legal difficulties. He is raised [facility]. He enjoys doing yard work, spending time with his girlfriend, and doing some kid activities with the children of his girlfriend. MENTAL STATUS EXAM: The patient is a 42-year-old white male in no apparent distress. Speech is of regular rate and rhythm. The patient is cognitively oriented x2 to person and place, but does have trouble with the date. Psychomotor activity is within normal limits. There is no abnormal motor movements or tics observed. Gait and station are not observed. This patient is bedbound for the interview. Mood is "good." Affect is cooperative overall for the purposes of the inpatient consult. There is no behavioral or stated evidence of acute suicidal or homicidal ideation or acute psychotic, delusional, or paranoid symptoms. Thought processes are organized. There are no manic symptoms, loose associations evident. Judgment and insight appear unimpaired at this point in time. Motivation for help is good. VITALS: 120/88, 81, 16, 97.8 degrees. IMPRESSION: Ruston I. 1. Depression, not otherwise specified, F32.9. 2. Rule out alcohol abuse versus dependence. Ruston II: None. Ruston III: Seizure episode x1 of unknown etiology, grand mal type. Ruston IV: Severe. Ruston V: 60. PLAN: 1. Sobriety. 2. We will hold off on psych medications at this point in time as the patient does not appear to have any psychiatric issues. 3. We would continue Topamax 25 mg b.i.d. as currently prescribed by primary inpatient medical treatment team for seizure prophylaxis. 4. We may discharge the patient back to community when medically stabilized, but would recommend referring the patient to Neurology for further workup regarding his seizure activity. 5. I will continue follow up with the patient on an as-needed basis while he remains on the inpatient medical unit. 6. We will follow up with the patient sooner if there are any complications in the interim. 7. Crisis plan is in place. [facility] /[id number]
--- NOTE | 2017-06-30 06:58 | PCM.DCSUM1 ---
Discharge Summary - Hospital Course Brief History: Devin Graham is a 42 yo male white male with past medical hx/o chronic etoh use who was brought in to our ED by [facility] after having a seizure. He was admitted for medical management of alcohol abuse and related seisure. - Discharge Data Discharge Date: 06/30/17 Discharge Disposition: Home, Self-Care 01 Condition: Good - Discharge Diagnosis/Problem(s) (1) Seizure SNOMED Code(s): 34735587 ICD Code: R56.9 - UNSPECIFIED CONVULSIONS Status: Resolved Priority: High (2) Alcohol abuse SNOMED Code(s): 99727074 ICD Code: F10.10 - ALCOHOL ABUSE, UNCOMPLICATED Status: Chronic Priority : High (3) Tobacco use disorder SNOMED Code(s): 473907762 ICD Code: F17.200 - NICOTINE DEPENDENCE, UNSPECIFIED, UNCOMPLICATED Status : Chronic Priority: Medium - Patient Summary/Data Operative Procedure(s) Performed: None Complications: None Consults: Consultations 06/28/17 19:25 Consult to Case Management [CONS] Routine Consult to Abalone Diver [CONS] Routine OT Evaluation and Treatment [CONS] Routine PT Evaluation and Treatment [CONS] Routine 06/28/17 19:36 Consult for Substance Abuse [CONS] Routine 06/29/17 10:44 Consult to Physician [CONS] Routine 06/29/17 12:39 Consult to Precipitator Operator [Consult to Diabetic Nurse Specialist] [CONS] Routine Labs Pending at D/C: None Recommended Follow-up Testing/Procedures: None Planned Operative Procedure(s) after DC: None Hospital Course: Patient was primarily admitted for medical treatment of alcohol related seizures. He carried a past medical history of chronic alcohol use. He admitted to drinking 2-3 beers a day but we felt he was drinking more than that. He however denied any previous history of brain trauma but reported a similar episode in the past. He was not on any anti-seizure medications and denied any illicit drug use. On presentation to the emergency department, he was found to have a blood alcohol level of 0.04. While in the emergency department, he had another episode of epileptic-like activity which led to his subsequent admission for medical management. In the unit, he was provided supportive care and was placed on CIWA protocol. The patient improved on this regimen. His hospital course was uncomplicated and his EEG study was negative. Patient will not be discharged with anti-epileptic medication as we felt this was all related to his alcohol use. Substance abuse and Tele-psych were both consulted for further management of his alcohol use disorder. Patient had done well since admission. He will be discharged today and was advised to avoid alcohol. He was further advised to follow-up with Andrew Castaneda for outpatient counseling. Patient was made aware of the outpatient commitment papers prior to discharge. - Patient Instructions Diet: Usual Diet as Tolerated Activity: As Tolerated Driving: May Drive Today Notify Provider of: Fever, Increased Pain, Nausea and/or Vomiting Other/Special Instructions: - Please resume all home activities w/o any restrictions. - Avoid ETOH!! - We recommend you follow up with Andrew Castaneda LAC outpatient after discharge. - Continue with recommened diet until your tongue improves. - Should you experience alcohol crisis or urge to drink, call Andrew or come to the ER and seek immediate care - Discharge Plan Home Medications: Home Meds . [No Known Home Meds] 06/28/17 [History] Patient Handouts: Smoking Cessation, Tips for Success, Ghow-er-Fife, Alcohol Use Disorder, Chemical Dependency, Alcohol Abuse and Nutrition, Finding Treatment for Addiction, Seizure, Adult, [id number], Stress and Stress Management, Alcohol Withdrawal, [id number] Referrals: Hari Chacon MD [Ordering Only Provider] - 08/10/17 2:00 pm (Neurology. Appointment is in Central Standard Time, 1:00 pm [place] Time. A packet will be mailed out to you for appt.) PCP,None [Primary Care Provider] - Jennifer Kumar [Physician] - 07/07/17 1:45 pm (Primary care physician to establish care. [address]) - Discharge Summary/Plan Comment DC Time >30 min.: Yes (45 mins) Discharge Summary/Plan Comment: Discharge to Home - General Info Date of Service: 06/30/17 Admission Dx/Problem (Free Text: Seizure and ETOH Withdrawal Subjective Update: Follow Up Functional Status: Reports: Pain Controlled, Tolerating Diet, Ambulating, Urinating. Denies: New Symptoms - Review of Systems General: Denies: Fever, Weakness, Fatigue, Malaise, Chills HEENT: Reports: Other (dysphagia) Pulmonary: Denies: Shortness of Breath Cardiovascular: Denies: Chest Pain, Palpitations, Dyspnea on Exertion, Lightheadedness Gastrointestinal: Denies: Abdominal Pain, Nausea, Vomiting Genitourinary: Reports: No Symptoms Musculoskeletal: Reports: No Symptoms Skin: Denies: Cyanosis, Mottled, Pallor, Diaphoresis Neurological: Denies: Confusion, Pre-Existing Deficit, Seizure, Difficulty Walking, Weakness, Gait Disturbance Psychiatric: Denies: Depression, Anxiety, Agitation, Hallucinations Systems Review Comment: No overnight or acute issues. He is doing relatively well. There were no reports of seizures or seizure like activities overnight. He is eager to go home now. - Patient Data Vitals - Most Recent: Last Vital Signs Temp 36.6 C 06/30/17 04:00 Pulse 63 06/30/17 04:00 Resp 16 06/30/17 04:00 BP 112/78 06/30/17 04:00 Pulse Ox 100 06/30/17 04:00 Weight - Most Recent: 73.573 kg I&O - Last 24 hours: Intake & Output 06/29/17 06/29/17 06/30/17 14:59 22:59 06:59 Intake Total 1040 Output Total 1200 500 Balance -160 -500 Lab Results - Last 24 hrs: Laboratory Results - last 24 hr 06/29/17 06/30/17 Range/Units 05:39 05:34 WBC 5.11 (4.23-9.07) K/mm3 RBC 4.39 L (4.63-6.08) M/mm3 Hgb 15.0 (13.7-17.5) gm/L Hct 43.7 (40.1-51.0) % MCV 99.5 H (79.0-92.2) fl MCH 34.2 H (25.7-32.2) pg MCHC 34.3 (32.2-35.5) g/dl RDW Std Deviation 44.2 H (35.1-43.9) fL Plt Count 150 L (163-337) K/mm3 MPV 9.8 (9.4-12.3) fl Neut % (Auto) 48.0 (34.0-67.9) % Lymph % (Auto) 37.6 (21.8-53.1) % [place] % (Auto) 11.4 (5.3-12.2) % Eos % (Auto) 2.2 (0.8-7.0) Baso % (Auto) 0.6 (0.1-1.2) % Neut # (Auto) 2.46 (1.78-5.38) K/mm3 Lymph # (Auto) 1.92 (1.32-3.57) K/mm3 [place] # (Auto) 0.58 (0.30-0.82) K/mm3 Eos # (Auto) 0.11 (0.04-0.54) K/mm3 Baso # (Auto) 0.03 (0.01-0.08) K/mm3 Sodium 134 L (136-145) mEq/L Potassium 3.6 (3.5-5.1) mEq/L Chloride 99 (98-107) mEq/L Carbon Dioxide 24 (21-32) mEq/L Anion Gap 14.6 (5-15) BUN 6 L (7-18) mg/dL Creatinine 1.0 (0.7-1.3) mg/dL Est Cr Clr Drug Dosing 102.49 mL/min Estimated GFR (MDRD) > 60 (>60) mL/min BUN/Creatinine Ratio 6.0 L (14-18) Glucose 80 (74-106) mg/dL Calcium 8.1 L (8.5-10.1) mg/dL Magnesium 2.6 H (1.8-2.4) mg/dl Med Orders - Current: Current Medications Albuterol/Ipratropium (Duoneb 3.0-0.5 Mg/3 Ml) 3 ml NEB Q4H PRN PRN Reason: Shortness Of Breath/wheezing Bisacodyl (Dulcolax) 5 mg PO DAILY PRN PRN Reason: Constipation Clonidine HCl (Catapres) 0.1 mg PO Q4H PRN PRN Reason: Agitation Docusate Sodium (Colace) 100 mg PO BID PRN PRN Reason: Constipation Famotidine (Pepcid) 20 mg PO BID [facility] Last Admin: 06/29/17 21:32 Dose: 20 mg Folic Acid (Folic Acid) 1 mg PO DAILY [facility] Last Admin: 06/29/17 08:25 Dose: 1 mg Hydralazine HCl (Apresoline) 10 mg PO Q6H PRN PRN Reason: Hypertension Dextrose/Sodium Chloride (Dextrose 5%-Normal Saline) 1,000 mls @ 100 mls/hr IV ASDIRECTED [facility] Last Admin: 06/29/17 21:54 Dose: 100 mls/hr Lorazepam (Ativan) 2 mg IVPUSH Q4H PRN PRN Reason: Seizures Lorazepam (Ativan) 1 - 3 mg IVPUSH Q4H PRN; Protocol PRN Reason: withdrawl Last Admin: 06/28/17 21:09 Dose: 1 mg Metoprolol Tartrate (Lopressor) 5 mg IVPUSH Q4H PRN PRN Reason: Tachycardia Miscellaneous Information (Remove Patch) 1 ea TRDERM DAILY [facility] Last Admin: 06/29/17 08:27 Dose: 1 ea Multivitamins (Thera) 1 each PO DAILY [facility] Last Admin: 06/29/17 08:25 Dose: 1 each Naproxen (Naprosyn) 500 mg PO Q12HR [facility] Last Admin: 06/29/17 21:32 Dose: 500 mg Nicotine (Habitrol) 21 mg TRDERM DAILY [facility] Last Admin: 06/29/17 08:24 Dose: 21 mg Ondansetron HCl (Zofran Odt) 4 mg PO Q6H PRN PRN Reason: nausea, able to take PO Ondansetron HCl (Zofran) 4 mg IV Q6H PRN PRN Reason: Nausea/Vomiting Quetiapine Fumarate (Seroquel) 50 mg PO BEDTIME [facility] Last Admin: 06/29/17 21:32 Dose: 50 mg Senna/Docusate Sodium (Senna Plus) 1 tab PO BID PRN PRN Reason: Constipation Sodium Chloride (Saline Flush) 10 ml FLUSH ASDIRECTED PRN PRN Reason: Keep Vein Open Last Admin: 06/28/17 15:38 Dose: 10 ml Thiamine HCl (Vitamin B-1) 100 mg PO DAILY [facility] Last Admin: 06/29/17 08:25 Dose: 100 mg Topiramate (Topamax) 25 mg PO BID [facility] Last Admin: 06/29/17 21:33 Dose: 25 mg Discontinued Medications Al Hydroxide/Mg Hydroxide (Mag-Al Plus) 30 ml PO ONETIME ONE Stop: 06/28/17 20:57 Last Admin: 06/29/17 03:33 Dose: Not Given Diazepam (Valium) 5 mg IVPUSH ONETIME ONE Stop: 06/28/17 15:12 Last Admin: 06/28/17 15:33 Dose: 5 mg Diphenhydramine HCl (Benadryl) 25 mg IVPUSH ONETIME ONE Stop: 06/29/17 03:46 Last Admin: 06/29/17 04:28 Dose: Not Given Famotidine (Pepcid) 20 mg IVPUSH ONETIME ONE Stop: 06/28/17 17:12 Last Admin: 06/28/17 17:16 Dose: 20 mg Sodium Chloride (Normal Saline) 1,000 mls @ 999 mls/hr IV ONETIME ONE Stop: 06/28/17 16:09 Last Admin: 06/28/17 15:33 Dose: 999 mls/hr Ibuprofen (Motrin) 600 mg PO Q6H PRN PRN Reason: Pain (moderate 4-6) Ketorolac Tromethamine (Toradol) 30 mg IVPUSH ONETIME ONE Stop: 06/28/17 17:12 Last Admin: 06/28/17 17:17 Dose: 30 mg Ketorolac Tromethamine (Toradol) 30 mg IM Q6H PRN PRN Reason: Pain (moderate 4-6) Lorazepam (Ativan) Confirm Administered Dose 2 mg .ROUTE .STK-MED ONE Stop: 06/28/17 15:19 Last Admin: 06/28/17 15:39 Dose: Not Given Lorazepam (Ativan) 2 mg IVPUSH ONETIME STA Stop: 06/28/17 15:16 Last Admin: 06/28/17 15:38 Dose: 2 mg Lorazepam (Ativan) Confirm Administered Dose 4 mg .ROUTE .STK-MED ONE Stop: 06/28/17 15:50 Last Admin: 06/28/17 17:45 Dose: Not Given Lorazepam (Ativan) 0 mg IV Q1H PRN; Protocol PRN Reason: Withdrawal Symptoms Lorazepam (Ativan) 0 mg IVPUSH Q4H PRN; Protocol PRN Reason: withdrawl Topiramate (Topamax) 25 mg PO BID ENOC Topiramate (Topamax) 50 mg PO ONETIME ONE Stop: 06/28/17 21:01 Last Admin: 06/28/17 20:51 Dose: 50 mg - Exam General: Reports: Alert, Oriented, Cooperative, No Acute Distress HEENT: Reports: Pupils Equal, Pupils Reactive, EOMI, Mucous Membr. Moist/[place] Neck: Reports: Supple, Trachea Midline, No JVD, No Thyromegaly Lungs: Reports: Clear to Auscultation, Normal Respiratory Effort Cardiovascular: Reports: Regular Rate, Regular Rhythm GI/Abdominal Exam: Normal Bowel Sounds, Soft, Non-Tender, No Organomegaly, No Distention, No Abnormal Bruit (Male) Exam: Deferred Rectal (Males) Exam: Deferred Back Exam: Reports: Normal Inspection, Full Range of Motion Extremities: Normal Inspection, Normal Range of Motion, Non-Tender, No Pedal Edema, Normal Capillary Refill Skin: Reports: Warm, Dry, Intact Neurological: Reports: No New Focal Deficit Psy/Mental Status: Reports: Alert, Normal Affect, Normal Mood *Q Meaningful Use (DIS) - VTE *Q VTE Criteria *Q: - Stroke *Q Stroke Criteria *Q: - AMI *Q AMI Criteria *Q:
[2017-06-30] MEDS ORDERED: FLU Vacc QS 2017-18 (6mos UP)/PF 60 MCG/0.5 ML Syringe IM ONE (07:54)
[2017-06-30] MEDS: Thiamine 100 MG Tab PO SCH (08:05)
[2017-06-30] MEDS: Multivitamins,Therapeutic Tab PO SCH (08:06)
[2017-06-30] MEDS: Topiramate 25 MG Tab PO SCH (08:06)
[2017-06-30] MEDS: Famotidine 20 MG Tab PO SCH (08:06)
[2017-06-30] MEDS: Naproxen 500 MG Tab PO SCH (08:07)
[2017-06-30] MEDS: Folic Acid 1 MG Tab PO SCH (08:07)
[2017-06-30] MEDS: Nicotine 21 MG/24 Hr Patch TRDERM SCH (08:08)
--- NOTE | 2017-07-03 10:29 | CONS ---
CONSULTING PHYSICIAN: Andrew Castaneda LAC DATE OF CONSULTATION: 06/30/2017 The patient is a 42-year-old male who was brought in to [facility] Emergency Department via ambulance after having an alcohol-related seizure. An alcohol and drug consultation was requested by his medical treatment team. The patient was evaluated on 06/29/2017 at approximately 3:15 p.m. Rectification Printer was completed 06/30/2017 at approximately 11:24 a.m. during regular business hours. SOURCE OF INFORMATION: Hospital records, patient's self-report, background research, and prescription drug monitoring report. PSYCHOSOCIAL HISTORY: The patient reports he was born and raised in [place], [place], by his biological parents, who are still together. He has 1 older sister. 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 After graduating from high school, he went to the [employer] on a partial music scholarship. After 1 year, he decided to move to [place], obtain residency, and attend [employer] for [employer] studies. He completed [address] at [employer] [place] [place] and decided he did not know what he wanted to do and quit school. 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 He states he was at age 23 and the marriage lasted 13 years. They had no children. 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 He found himself very unhappy as he had left a beautiful home and a business and his decided to divorce him and left for [place]. The patient states that he moved back to [place] and planted trees for season and then went to [place], [place], where he worked at a [employer] for a year and a half. Approximately in 2014, he moved back to [place] and lived with his parents. He got a job with [employer] and was transferred to [employer] in the spring of 2016. He is currently still employed with that [employer]. He has a significant relationship and his girlfriend has a son. He has no spiritual beliefs. SUBSTANCE ABUSE HISTORY: The patient reports that he started smoking weed while in college and would smoke about a quarter ounce a week, this continued on a daily basis until 2006, when he was , and he began to drink instead of using cannabis. He has fond memories about drinking beer with his grandfather, so it has a positive appeal to him on an emotional level. During his divorce in 2006, he states he drank most days as he had a keg set up where he lived. He was drinking about a gallon of beer most days. When he moved to [place], he cut back and would drink a 6-pack of beer nightly. This pattern lasted until he moved back to [place], [place]. Then he began to drink "not every day and not to black out." He states before he had a seizure he got into a fight with his girlfriend, had 8 beers, left from a 12-pack, and drank them all. From this information, it could be that the patient is drinking anywhere from 6 to 12 beers on a daily basis. Further assessment is needed to understand the severity of his drinking behaviors. He states he has had no period of sobriety since he began drinking in 2006. He has had 1 prior alcohol-related seizure due to his drinking in the past. He states that he does not have a seizure disorder, but it is a result of alcohol use. The patient reports that he no longer smokes cannabis. His ANANYA upon admission is 0.04. The patient is also a daily cigarette smoker for the last 15 years and smokes about a pack a day. He reports experimenting with LSD, ecstasy, and mushrooms when he was younger, but has had no use in his adult life. DIAGNOSES: The patient meets DSM-5 criteria for the following diagnoses: 1. F10.20, alcohol use disorder, severe. 2. F10.239, alcohol withdrawal without perceptual disturbance. 3. F17.200, tobacco use disorder, severe. 4. F12.20, cannabis use disorder, severe, in partial to full remission. ASAM DIMENSIONS: 1. Dimension 1: Score 2+. The patient has some difficulty tolerating and coping with withdrawal discomfort. Displays severe signs of withdrawal. 2. Dimension 2: Score is 0. Displays full functioning with good ability to cope with physical discomfort. 3. Dimension 3: Score 1. The patient has impulse control and coping skills. He may have a mental health diagnosis, but appears to be functioning adequately in significant life areas. 4. Dimension 4: Score 1. The patient is motivated with active reinforcement to explore treatment and strategies for change, but ambivalent about his illness or need for change. 5. Dimension 5: Score 3. The patient has little recognition and understanding of relapse and recidivism issues and displays a high vulnerability for further substance use. 6. Dimension 6: Score 1. The patient is engaged in structured meaningful activity, has a passive social network, and significant other is interested in his recovery. ASSESSMENT SUMMARY: The patient appears to be a very nice man, who it seems had a very bright future right out of high school, however, it may be that his cannabis use became so pervasive that a motivational syndrome set in. 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 It appears his heart was broken in 2008 when he got and that is when his drinking career began. He has not had any length of sobriety since that time. He appears to be in stage III alcoholism, which requires professional intervention to assist the patient in achieving and maintaining sobriety. We discussed all treatment options available to him and decided that a petition for involuntary commitment may be the most beneficial for him as he wants to quit drinking, but needs a structured environment in order to achieve sobriety and support him in sober living. Dr. Lawrence and GREG Doss, were consulted regarding the consultation and recommendations. A petition for involuntary commitment for outpatient treatment at [facility] was executed on 06/29/2017. GREG Doss, will fax the paperwork to [facility] and serve the patient his copy of the petition. Andrew Castaneda LAC, provided referral information for the patient to follow through with the requirements of the commitment. RECOMMENDATION: The patient meets ASAM criteria for level 1 outpatient services. A petition for involuntary commitment was exercised on 06/29/2017 for [facility] continued care after discharge. [facility] /[id number]
== END 2017-06-30 08:45 | disposition home or self-care (01) | DRG 53 ==
LOC: JD.ED 14:48 → UNDOADMIN 17:05 → JD.ICU 17:05
PROVIDERS: ADMIT Internal Medicine; ATTEND Internal Medicine
DX: R56.9 Unspecified convulsions (principal); F10.239 Alcohol dependence with withdrawal, unspecified; F17.210 Nicotine dependence, cigarettes, uncomplicated; F32.9 Major depressive disorder, single episode, unspecified; Y90.5 Blood alcohol level of 100-119 mg/100 ml
CPT/HCPCS: 36415; 70450; 70450-26; 71010; 71010-26; 80048; 80053; 80306; 82550; 83735; 84100; 85025; 85610; 85730; 90686; 95816; 95824; 96361; 96374; 96375; 99223; 99232; 99239; 99285; 99285-25; A9270-GY; G0008; G0480; J1885; J2060; J3360; J7040; J7042; J7050

== ENCOUNTER 2017-07-28 13:30 | Emergency (ER) | payer OTHER, BC ==
[2017-07-28] MEDS ORDERED: Sodium Chloride 0.9% 10 ML Syringe FLUSH PRN ×2 (14:16→14:23)
[2017-07-28] MEDS ORDERED: Sodium Chloride 0.9% 1,000 ML IV ONE (14:17)
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
[2017-07-28] MEDS ORDERED: Iopamidol 612 MG/ML 150 ML Bottle IVPUSH ONE (14:23)
--- NOTE | 2017-07-28 14:57 | CT ---
CT cervical spine Technique: Multiple axial sections were obtained from above C1 inferiorly to the mid T2 level. Reconstructed coronal and sagittal images were reviewed. Comparison: No prior cervical spine imaging. Findings: Vertebral body heights and disc spaces are maintained. Posterior skull base is intact. Mild right-sided neural foraminal stenosis is noted at C3-C4. Mild left-sided neural foraminal stenosis is noted at C5-C6. No bony central canal stenosis is seen. Vertebral bodies and posterior arches are intact. No fracture is appreciated. Mild scattered degenerative apophyseal change is seen throughout the cervical spine. Mild degenerative spurring within the uncovertebral joints is seen at C3-C4 through C6-C7. Impression: 1. Mild degenerative change. 2. No acute fracture or abnormal subluxation is seen on CT study of the cervical spine. Diagnostic code #2
--- NOTE | 2017-07-28 15:04 | CT ---
CT chest Technique: Multiple axial sections were obtained from above the lung apices inferiorly through the lung bases. Intravenous contrast was utilized. Comparison: Prior chest x-ray performed earlier on the same day. Findings: Mediastinum and hilar regions are unremarkable. Opacified great vessels show no discrete abnormality. No pericardial thickening is seen. Lungs are clear. No pulmonary contusion is seen. No pleural effusions are identified. No pneumothorax is seen. No discrete rib abnormality is identified. Mild endplate concavities are seen within T5, T6, T7 and T8 which involves the superior endplates. These are most likely developmental and not acute. Sternum appears intact. Impression: 1. Incidental spine findings. 2. Nothing acute is appreciated on CT study of the chest. Diagnostic code #2 CT abdomen and pelvis Technique: Multiple axial sections were obtained from above the dome of the diaphragm inferiorly through the pubic symphysis. Intravenous contrast was utilized. No oral contrast has been given. Delayed images through the bladder were obtained. Comparison: No prior CT abdomen or pelvis study. Findings: Liver shows no focal abnormality. Spleen appears within normal limits. Adrenal glands show no nodule. Pancreas is within normal limits. Gallbladder shows no calcified gallstones. Kidneys show symmetric contrast enhancement without abnormality. Aorta shows no aneurysmal dilatation. No retroperitoneal adenopathy or mesenteric abnormalities are seen. Appendix is seen which appears normal. No pelvic mass or adenopathy is seen. Delayed images shows contrast within the distal ureters and within the bladder. Bone window settings were reviewed which shows no discrete fracture within the lumbar spine. Pelvis shows no fracture. Right and left hips show no fracture. Mild degenerative change is seen within the spine mostly within the apophyseal joints at L4-L5. L4-L5 disc is also slightly narrowed. Impression: 1. Incidental findings. Nothing acute is seen on CT study of the abdomen and pelvis. Diagnostic code #2
--- NOTE | 2017-07-28 15:07 | CT ---
Head CT Technique: Multiple axial sections through the brain were obtained. Intravenous contrast was not utilized. Comparison: Prior head CT exam of 06/28/17. Findings: Ventricles along with basal cisterns and sulci over the convexities are within normal limits for the patient's age. Small low-density abnormality is again noted within the posterior left basal ganglia which is felt to be incidental and is stable from prior exam. No other abnormal parenchymal densities are seen. No evidence of intracranial hemorrhage. No midline shift or mass effect is seen. Bone window settings were reviewed which shows the visualized sinuses to appear clear. No acute calvarial abnormality is seen. Impression: 1. Incidental finding as noted above. Nothing acute is seen on noncontrast head CT study. Diagnostic code #2
[2017-07-28] MEDS ORDERED: LORazepam 2 MG/ML MDV IVPUSH ONE (16:04)
[2017-07-28] MEDS ORDERED: LORazepam 2 MG/ML MDV IVPUSH STA (16:04)
[2017-07-28] MEDS ORDERED: LORazepam 2 MG/ML MDV ONE (16:09)
[2017-07-28] MEDS ORDERED: levETIRAcetam 1,000 MG in Sodium Chloride 0.9% 100 ML IV ONE (16:21)
--- NOTE | 2017-07-29 12:51 | CR ---
Chest: Frontal view of the chest was obtained utilizing portable technique. Comparison: Prior chest x-ray of 06/28/17. Heart size and mediastinum are within normal limits. Lungs are clear. Bony structures are grossly intact. Impression: 1. Nothing acute is identified on portable chest x-ray. Diagnostic code #1
== END 2017-07-28 17:12 | disposition home or self-care (01) ==
LOC: JD.ED 13:30
DX: R56.9 Unspecified convulsions (principal); F17.210 Nicotine dependence, cigarettes, uncomplicated
CPT/HCPCS: 36415; 70450; 71010; 71260; 72125; 74177; 80053; 80306; 81001; 83735; 84100; 85025; 85610; 85730; 93005; 96361; 96365; 96375; 99285; G0480; J1953; J2060; J7030; J7040; J7050; Q9967; 99284-25